=== PATIENT | male | born 1955 | race Caucasian/White ===

== ENCOUNTER 2021-10-02 17:57 | Emergency (ER) | payer OTHER ==
[~2021-10-02] VITALS: Ht 172.7 cm; Wt 106.1 kg
[2021-10-02] MEDS ORDERED: LACTATED RINGER'S 2,000 ML IV ONE (18:45)
[2021-10-02 19:21] LABS: Basophils # (auto) 0.3 10 ^3/uL (0-0.2); Eosinophils # (auto) 0.3 10 ^3/uL (0-0.8); Eosinophils % (auto) 3.8 % (0.0-7.0); Hematocrit 45.8 % (41.0-53.0); Hemoglobin 15.9 g/dL (13.5-17.5); Lymphocytes # (auto) 1.3 10 ^3/uL (0.4-5.4); Lymphocytes % (auto) 17.1 % (10.0-50.0); Mean Corpuscular Hemoglobin 30.9 pg (28.0-32.0); Mean Corpuscular Hgb Conc. 34.7 g/dL (32.0-36.0); Mean Corpuscular Volume 89.1 fL (80.0-100.0); Monocytes # (auto) 0.4 10 ^3/uL (0-1.3); Neutrophils # (auto) 5.4 10 ^3/uL (1.6-8.6); Neutrophils % (auto) 70.1 % (37.0-80.0); Nucleated Red Blood Cells % 0.1 %; Red Blood Cells 5.14 10^6/uL (4.5-5.90); Red Cell Distribution Width 12.7 % (11.8-14.3); White Blood Cell 7.7 10^3/uL (4.4-10.8)
[2021-10-02 19:45] LABS: Albumin 3.5 g/dL (3.4-5.0); BUN/Creatinine Ratio 17.2; Calcium 9.1 mg/dL (8.5-10.1); Potassium 3.8 mmol/L (3.5-5.1)
[2021-10-02 19:46] LABS: Lactic Acid w/Reflex 3.1 mmol/L (0.4-2.0)
[2021-10-02 19:48] LABS: Bilirubin, Total 1.1 mg/dL (0.2-1.0); Magnesium 1.8 mg/dL (1.6-2.6); Phosphorus 3.2 mg/dL (2.5-4.90); Total Protein 6.8 g/dL (6.4-8.2)
[2021-10-02] MEDS ORDERED: IOHEXOL 350 MG/ML 100ML IJ ONE (21:43)
[2021-10-03] MEDS ORDERED: ASPirin 325 MG TAB PO ONE
[2021-10-03 07:09] VITALS: BP 150/81
== END 2021-10-03 07:22 | disposition short-term general hospital (02) ==
LOC: ER 18:06
DX: E11.65 Type 2 diabetes mellitus with hyperglycemia (principal); I63.9 Cerebral infarction, unspecified; E86.0 Dehydration; E78.5 Hyperlipidemia, unspecified; I10 Essential (primary) hypertension
CPT/HCPCS: 36415; 36600; 70496; 70498; 71045; 80053; 82010; 82805; 82962; 83605; 83690; 83735; 83930; 84100; 84484; 85025; 93005; 96360; 96361; 99285; Q9967